=== PATIENT | female | born 1950 | race Caucasian/White ===

== ENCOUNTER → 2018-07-18 | Outpatient (CLI) | payer MEDICARE, OTHER ==
[2018-07-18 12:20] LABS: ABSOLUTE BASOPHILS # (AUTO) 0.1 10^3/uL (0.0-0.2); ABSOLUTE EOSINOPHILS # (AUTO) 0.2 10^3/uL (0.0-0.6); ABSOLUTE LYMPHOCYTES (AUTO) 2.6 10^3/uL (0.5-4.7); ABSOLUTE MONOCYTES (AUTO) 0.5 10^3/uL (0.1-1.4); BASOPHILS % (AUTO) 0.8 % (0-2); EOSINOPHILS % (AUTO) 2.4 % (0-6); HEMATOCRIT 38.3 % (36.0-47.0); HEMOGLOBIN 12.8 g/dL (12.0-15.5); LYMPHOCYTES % (AUTO) 35.2 % (13-45); MEAN CORPUSCULAR HEMOGLOBIN 28.9 pg (27.0-33.4); MEAN CORPUSCULAR HGB CONC 33.4 g/dL (32.0-36.0); MEAN CORPUSCULAR VOLUME 87 fl (80-97); MONOCYTES % (AUTO) 6.5 % (3-13); PLATELET COUNT 272 10^3/uL (150-450); RED BLOOD COUNT 4.42 10^6/uL (3.72-5.28); RED CELL DISTRIBUTION WIDTH 13.5 % (11.5-14.0); SEGMENTED NEUTROPHILS % (AUTO) 55.1 % (42-78); TOTAL CELLS COUNTED % (AUTO) 100 %; WHITE BLOOD COUNT 7.3 10^3/uL (4.0-10.5)
[2018-07-18 12:25] LABS: APPEARANCE,URINE CLEAR; BILIRUBIN,URINE NEGATIVE (NEGATIVE); COLOR,URINE COLORLESS; GLUCOSE, URINE NEGATIVE (NEGATIVE); KETONES,URINE NEGATIVE (NEGATIVE); LEUKOCYTE ESTERASE,URINE NEGATIVE (NEGATIVE); NITRITE,URINE NEGATIVE (NEGATIVE); PROTEIN,URINE NEGATIVE (NEGATIVE); URINE SPECIFIC GRAVITY 1.001; UROBILINOGEN,URINE NEGATIVE mg/dL (<2.0)
[2018-07-18 12:27] LABS: INTERNATIONAL RATION (INR) 0.87; PROTHROMBIN TIME 12.3 SEC (11.4-15.4)
[2018-07-18 12:28] LABS: PARTIAL THROMBOPLASTIN TIME 28.5 SEC (23.5-35.8)
== END ==
LOC: OD 07-15 12:26
PROVIDERS: ATTEND Pain Medicine Interventional Pain Medicine
DX: G89.4 Chronic pain syndrome (principal); Z79.01 Long term (current) use of anticoagulants
CPT/HCPCS: 36415; 81001; 85025; 85610; 85730

== ENCOUNTER 2018-07-19 09:59 | Day surgery (SDC) | payer MEDICARE, OTHER ==
[~2018-07-19 09:59] MED LIST: CEFAZOLIN 1 GM/D5W RTU 1 GM/50 ML RTUPB IV PRN; FENTANYL CITRATE INJ/PF 100 MCG/2 ML AMPUL ONE; MIDAZOLAM 2 MG/2 ML INJ ONE; PROPOFOL INJ 200 MG/20 ML VIAL IV ONE; RINGERS SOLUTION,LACTATED 1,000 ML IV PRN
[2018-07-19] MEDS ORDERED: CEFAZOLIN 1 GM/D5W RTU 1 GM/50 ML RTUPB IV ONE (10:10)
[2018-07-19] MEDS ORDERED: BUPIVACAINE HCL 0.25% /EPINEPHRINE INJ/PF 30 ML SDV ONE ×2 (10:58→11:23)
[2018-07-19] MEDS ORDERED: SODIUM BICARBONATE 8.4% INJ 50 MEQ/50 ML DISP.SYRIN ONE ×2 (10:58→11:23)
[2018-07-19] MEDS ORDERED: LIDOCAINE 1% INJ-PF (10 MG/ML) 30 ML SDV ONE ×2 (10:58→11:23)
--- NOTE | 2018-07-19 11:16 | RADIOLOGY REPORT (SQ) ---
EXAM DESCRIPTION: CHEST SINGLE VIEW COMPLETED DATE/TIME: 07/19/2018 10:57 am REASON FOR STUDY: preop COMPARISON: 07/20/2016 EXAM PARAMETERS: NUMBER OF VIEWS: One view. TECHNIQUE: Single frontal radiographic view of the chest acquired. RADIATION DOSE: NA LIMITATIONS: None. FINDINGS: LUNGS AND PLEURA: A well-defined stable sclerotic density overlies the medial aspect of t he right apex of the lung. No acute pulmonary consolidation. No pneumothorax or pleural effusion. MEDIASTINUM AND HILAR STRUCTURES: No masses. Contour normal. HEART AND VASCULAR STRUCTURES: Heart normal in size. Normal vasculature. BONES: No acute findings. HARDWARE: None in the chest. OTHER: No other significant finding. IMPRESSION: 1. No significant interval changes since the prior examination dated 07/20/2016. No ac standing rock findings. TECHNICAL DOCUMENTATION: JOB ID: [id number] [employer]- All Rights Reserved Reading location - IP/workstation name: [email or web address]
[2018-07-19] MEDS ORDERED: BUPIVACAINE HCL 0.5 % INJ/PF 30 ML SDV ONE (11:23)
[2018-07-19] MEDS ORDERED: FENTANYL CITRATE INJ/PF 100 MCG/2 ML AMPUL IV PRN ×3 (13:00)
[2018-07-19] MEDS ORDERED: PROMETHAZINE HCL INJ 25 MG/1 ML VIAL IV PRN (13:00)
[2018-07-19] MEDS ORDERED: MEPERIDINE HCL/PF INJ 25 MG/1 ML DISP.SYRIN IV PRN (13:00)
--- NOTE | 2018-07-19 13:00 | EKG REPORT ---
SEVERITY:- ABNORMAL ECG - SINUS RHYTHM PROBABLE INFERIOR INFARCT, AGE INDETERMINATE : Confirmed by: Edu Louis MD 19-Jul-2018 12:59:55
[2018-07-19] MEDS ORDERED: CEFAZOLIN INJ 1 GM VIAL ONE (13:28)
[2018-07-19] MEDS ORDERED: ONDANSETRON HCL INJ/PF 4 MG/2 ML SDV ONE (14:02)
--- NOTE | 2018-07-19 14:29 | RADIOLOGY REPORT (SQ) ---
EXAM DESCRIPTION: NO CHG FLUORO; THORACOLUMBAR SPINE AP/LAT COMPLETED DATE/TIME: 07/19/2018 1:31 pm REASON FOR STUDY: SPINAL STIMULATOR ASST WITH FLUORO IN OR G89.4 CHRONIC PAIN SYNDROME COMPARISON: None. FLUOROSCOPY TIME: 1.5 minutes 6 images saved to PACS. TECHNIQUE: Intra-operative images acquired during surgical procedure to evaluate progress. NUMBER OF IMAGES: 6 LIMITATIONS: None. FINDINGS: Placement of neurostimulator. IMPRESSION: IMAGE(S) OBTAINED DURING PROCEDURE. COMMENT: Quality ID 145: Final reports for procedures using fluoroscopy that document radiation exp osure indices, or exposure time and number of fluorographic images (if radiation exposure indices are not available) Please consult full operative report of the attending physician for description of the procedure. TECHNICAL DOCUMENTATION: JOB ID: [id number] [employer]- All Rights Reserved Reading location - IP/workstation name: [email or web address]
--- NOTE | 2018-07-19 14:29 | RADIOLOGY REPORT (SQ) ---
EXAM DESCRIPTION: NO CHG FLUORO; THORACOLUMBAR SPINE AP/LAT COMPLETED DATE/TIME: 07/19/2018 1:31 pm REASON FOR STUDY: SPINAL STIMULATOR ASST WITH FLUORO IN OR G89.4 CHRONIC PAIN SYNDROME COMPARISON: None. FLUOROSCOPY TIME: 1.5 minutes 6 images saved to PACS. TECHNIQUE: Intra-operative images acquired during surgical procedure to evaluate progress. NUMBER OF IMAGES: 6 LIMITATIONS: None. FINDINGS: Placement of neurostimulator. IMPRESSION: IMAGE(S) OBTAINED DURING PROCEDURE. COMMENT: Quality ID [id number]: Final reports for procedures using fluoroscopy that document radiation exp osure indices, or exposure time and number of fluorographic images (if radiation exposure indices are not available) Please consult full operative report of the attending physician for description of the procedure. TECHNICAL DOCUMENTATION: JOB ID: [id number] [employer]- All Rights Reserved Reading location - IP/workstation name: [email or web address]
[2018-07-19 16:12] VITALS: BP 134/80
--- NOTE | 2018-07-19 17:07 | OPERATIVE REPORT E ---
Operative Report NAME: MERNA GARZA : 1950 AGE: 68Y DATE OF SURGERY: 07/19/2018 ROOM: PREOPERATIVE DIAGNOSIS: Post-laminectomy syndrome with chronic back and lower extremity pain. POSTOPERATIVE DIAGNOSIS: Post-laminectomy syndrome with chronic back and lower extremity pain. OPERATIVE PROCEDURE: Implantation of spinal cord stimulation system to include right and left spinal cord stimulator electrodes in the thoracic spine followed by pulse generator complex programming and fluoroscopy for needle and lead placement. SURGEON: ADTIYA REGALADO M.D. ANESTHESIA: MAC. FIBERGLASS FINISHER: Kanwal Chandra M.D. BLOOD LOSS: 5 mL. COMPLICATIONS: None. INDICATIONS: Successful pain relief with outpatient spinal cord stimulation trial. PROCEDURE NOTE: After obtaining informed consent and advising the patient of the risks and benefits, including serious neurological injury, bleeding and infection, failure to obtain pain relief, aggravation of pain, paralysis, and nerve injury, allergic reaction and , she was taken to the operating room and placed comfortably in the prone position. Monitors were applied. MAC anesthesia was administered. She was then prepped with chlorhexidine with appropriate drying time, then draped. Fluoroscopy was used to evaluate the lumbar spine through selected entrance site using a midline incision. The pulse generator site had already been selected over the right gluteal flank region and had been marked. Both regions were anesthetized with 1% lidocaine with bicarb followed by deeper installation of the same followed by 0.25% bupivacaine with epinephrine. Sharp and blunt dissection were performed in both locations to create a suitable working space. In the lumbar region, the lumbar fascia was identified readily. At this point, decision was made to proceed with the implant. The spinal needles were utilized to anesthetize the paraspinal musculature down to the inner space at L1-2. The 14-gauge Tuohy needles were then advanced under fluoroscopic guidance entering into the epidural space right and left using [id number] to saline technique. No *------* or paresthesias were noted. The leads were placed through each of the needles and advanced up to the mid region of T8 to the mid region of T10. On the inferior region, they were pretty much parallel in location, so at least staggered. The 0 Mersilene pursestrings were placed on each needle followed by distal stay sutures. The right needle was removed first with care being attended to keep the electrode in correct place. The anchor was placed over this. The pursestring was secured followed by the distal stay suture. Lead position was continued with *------* monitor to assure no significant change in location. The second lead was secured with an anchor after removing the Touhy needle. The leads were then tunneled to the pulse generator site after anesthetizing that region as well. The left lead was marked and connected to the pulse generator in its upper location followed by the right lead in the lower location. Impedance was checked and found to be satisfactory. All hex nuts were secured. Each wound was then copiously irrigated with Betadine-containing irrigation solution. The pulse generator was placed in with the wires placed behind it and the label and plate facing the skin. After irrigation and inspection for hemostasis, the wounds were closed with 2-0 Vicryl interrupted inverted vertical mattress sutures. The skin edges of both wounds came together very nicely and the decision was made to use Dermabond tape and cement. When this was dry, Telfa and Tegaderm were placed over this. The patient was then taken to the PACU for further postoperative care and monitoring. DICTATING PHYSICIAN: ADITYA REGALADO M.D. [id number] PHY#: [id number] ID: [id number] JOB#: [id number] ACCT: [id number] cc:ADITYA REGALADO M.D. >
== END 2018-07-19 16:05 | disposition home or self-care (01) ==
LOC: OROUT 09:59
PROVIDERS: ATTEND Pain Medicine Interventional Pain Medicine
DX: G89.4 Chronic pain syndrome (principal); M96.1 Postlaminectomy syndrome, not elsewhere classified; E78.00 Pure hypercholesterolemia, unspecified; I10 Essential (primary) hypertension; M54.16 Radiculopathy, lumbar region; Z88.2 Allergy status to sulfonamides; Z88.1 Allergy status to other antibiotic agents; Z79.899 Other long term (current) drug therapy
CPT/HCPCS: 63685; 63650; 71045; 72080; 93005; 93010; C1778; J2250; J3490 ×3; J0690 ×2; J3010; J2405; J2704; 1936

== ENCOUNTER 2020-05-26 13:50 | Emergency (ER) | payer MEDICARE, OTHER ==
[2020-05-26] MEDS ORDERED: KETOROLAC TROMETHAMINE INJ/PF 30 MG/1 ML SDV IM ONE (14:02)
--- NOTE | 2020-05-26 14:06 | ER Document Report ---
ED Extremity Problem, Lower - General Chief Complaint: Ankle Pain Stated Complaint: RIGHT ANKLE PAIN Time Seen by Provider: 05/26/20 13:55 Primary Care Provider: [facility] [Provider Group] - Follow up in 3-5 days FRANNIE WINTERS DPM [ACTIVE STAFF] - Follow up in 3-5 days KEMAL HERNANDEZ NP [Primary Care Provider] - Follow up in 3-5 days Mode of Arrival: Ambulatory Information source: Patient Notes: 70-year-old female presented ED for pain to the right ankle. She states it started yesterday. She states she woke up started on her foot and almost made her fall. She states she has not had any injuries. She is on chronic pain management. She does have osteoporosis. She states she is on hydrocodone one half of a 5/325 pill as needed. She states most days she takes 1 a day but sometimes she has to take 2 doses. She is alert oriented respirations regular nonlabored speaking in full sentences. Constitutional: Negative for fever. HENT: Negative for sore throat. Eyes: Negative for visual changes. Cardiovascular: Negative for chest pain. Respiratory: Negative for shortness of breath. Gastrointestinal: Negative for abdominal pain, vomiting or diarrhea. Genitourinary: Negative for dysuria. Musculoskeletal: Negative for back pain. Pain to right foot and ankle but is able to ambulate with pain no swelling noted. No signs of bruising or any injury Skin: Negative for rash. Neurological: Negative for headaches, weakness or numbness. 10 point ROS negative except as marked above and in HPI. PHYSICAL EXAMINATION: GENERAL: Well-appearing, well-nourished and in no acute distress. HEAD: Atraumatic, normocephalic. EYES: Pupils equal round extraocular movements intact, conjunctiva are normal. ENT: Nares patent NECK: Normal range of motion LUNGS: No respiratory distress Musculoskeletal: Normal range of motion pain with ambulation to the right foot and ankle NEUROLOGICAL: Normal speech, mild limp due to pain to right foot and ankle PSYCH: Normal mood, normal affect. SKIN: Warm, Dry, normal turgor, no rashes or lesions noted. TRAVEL OUTSIDE OF THE [place] IN LAST 30 DAYS: No - HPI Patient complains to provider of: Pain Location: Ankle, Foot Occurred: Yesterday Where: Home, Indoors Onset/Duration: Intermittent Quality of pain: Achy Severity: Moderate Pain Level: 2 Context: Other - No injury Recent injury: No Associated symptoms: Painful ambulation Exacerbated by: Movement, Walking Relieved by: Nothing - Related Data Allergies/Adverse Reactions: levofloxacin [From Levaquin] Allergy (Verified 07/20/16 15:27) Sulfa (Sulfonamide Antibiotics) Allergy (Verified 07/20/16 15:27) Past Medical History - General Information source: Patient - Social History Smoking Status: Never Smoker Frequency of alcohol use: None Drug Abuse: None Family History: Reviewed & Not Pertinent - Past Medical History Cardiac Medical History: Reports: Hx Hypertension - ON MEDS Pulmonary Medical History: Reports: None EENT Medical History: Reports: None Neurological Medical History: Reports: None Endocrine Medical History: Reports: None Renal/ Medical History: Reports: None Malignancy Medical History: Reports: None GI Medical History: Reports: Hx Gastritis, Hx Gastroesophageal Reflux Disease Musculoskeletal Medical History: Reports Hx Arthritis - BACK, Reports Hx Musculoskeletal Deformity - Heel spurs and bone spurs, Reports Hx Musculoskeletal Trauma Skin Medical History: Reports None Psychiatric Medical History: Reports: None Traumatic Medical History: Reports: None Infectious Medical History: Reports: None Past Surgical History: Reports: Hx Orthopedic Surgery - back x2 pain stimulator inserted - Immunizations Hx Diphtheria, Pertussis, Tetanus Vaccination: Yes Hx Pneumococcal Vaccination: 06/16/16 Physical Exam - Vital signs Vitals: Temp Pulse Resp BP Pulse Ox 98.1 F 57 L 16 149/69 H 98 05/26/20 13:56 05/26/20 13:56 05/26/20 13:56 05/26/20 13:56 05/26/20 13:56 Course - Re-evaluation Re-evalutation: 05/26/20 15:33 X-ray was negative for any acute processes. She did have bone spurs and arthritis to the ankle. She states she knew she had these in the past. She did note that the pain was worse this time. She states she will take her chronic pain management and she will follow up with her primary care doctor and either a internet programmer or commodity management specialist. I did give her name and number for internet programmer and orthopedics. I told her she can make up her mind and see which ever she could get into. I also gave her exercises to do for the arthritis and the bone spurs. She was treated with a Toradol injection in the emergency room and she stated it did help a lot but that she could not take anti-inflammatories by mouth as they upset her stomach too much. She was instructed please to follow-up with someone tomorrow. Patient verbalized understanding and agreement. Patient was discharged home. - Vital Signs Vital signs: Temp Pulse Resp BP Pulse Ox 98.1 F 68 18 125/67 98 05/26/20 13:56 05/26/20 15:31 05/26/20 15:31 05/26/20 15:31 05/26/20 15:31 - Diagnostic Test Radiology reviewed: Image reviewed, Reports reviewed Discharge - Discharge Clinical Impression: Large plantar and Achilles spurs, Arthritis of right ankle, Pain, foot, right, chronic Condition: Stable Disposition: HOME, SELF-CARE Additional Instructions: Arthritis Your symptoms are due to arthritis. Arthritis is an inflammation of the joints. There are many types -- osteoarthritis (due to "wear and tear"), auto- immmune arthritis (such as rheumatoid, lupus, Sonya's, and others), and crystal-induced arthritis (such as gout and pseudogout). The physician's examination, combined with laboratory tests, will determine the cause of your arthritis. All types of arthritis are treated with antiinflammatory medications. Other medication may be required for special types of arthritis, or if your problem does not respond to the antiinflammatory medicine. Local warmth may be helpful. Move the involved joints through the full range of motion daily. Mild exercise is usually still possible for most persons with arthritis (ask your physician). Swimming provides good exercise without damaging the joints. Contact the physician if you are worsening in any way. Plantar Fasciitis or Heel Spur Plantar fasciitis is an inflammation of a ligament on the underside of the foot. It can be caused by injury, overuse such as running, or poorly fitting shoes. There may be a bone spur on the heel if inflammation has persisted a long time. Plantar fasciitis is treated with stretching exercises and antiinflammatory medicine. More severe cases may require injection of cortisone. It may take several weeks to get better. If nothing gives relief, an operation to remove the heel spur may help. Call or return if there is redness, increasing pain, swelling, fever, or any other new symptoms. Exercises for the Foot Muscles Stretching and strengthening of the foot muscles is an important part of recovery from injury, as well as in treatment and prevention of overuse syndromes like plantar fasciitis. TOWEL CURLS: Put your foot on a dry towel. Curl your toes to pick it up, then drop it. As it becomes easier, use a heavier towel. Repeat 20 times, twice daily. GLEZ CURLS: Lift and turn your knee, so your foot is against the opposite leg about mid-glez. Try to "grab" the entire glez bone with your toes, while moving your foot up and down the leg for one minute. Repeat twice daily. TOE LIFTS: Put your opposite foot over your 2nd to 5th toes. Now lift the toes up, pushing the other foot upward. Repeat 10 times, twice daily. Repeat using the large toe. EVERSIONS: Cross the opposite foot over, placing the heel just behind the 4th and 5th toes. Try to lift up the outside of the bottom foot. Hold 10 seconds. Repeat twice daily. Toradol Injection You have been given an injection of ketorolac tromethamine (Toradol). This is an excellent, safe drug for pain control. It also has potent antiinflammatory action. You should have significant pain relief within about one hour. Toradol is not addicting and is non-sedating. It does not interfere with driving or work. Call or return if you develop itching, hives, shortness of breath, or rash. Continue taking your chronic pain management medications as prescribed. FOLLOW-UP CARE: If you have been referred to a physician for follow-up care, call the physicians office for an appointment as you were instructed or within the next two days. If you experience worsening or a significant change in your symptoms, notify the physician immediately or return to the Emergency Department at any time for re-evaluation. Forms: Elevated Blood Pressure Referrals: FRANNIE WINTERS DPM [ACTIVE STAFF] - Follow up in 3-5 days [facility] [Provider Group] - Follow up in 3-5 days KEMAL HERNANDEZ NP [Primary Care Provider] - Follow up in 3-5 days
--- NOTE | 2020-05-26 14:38 | RADIOLOGY REPORT (SQ) ---
EXAM DESCRIPTION: ANKLE RIGHT COMPLETE IMAGES COMPLETED DATE/TIME: 05/26/2020 2:09 pm REASON FOR STUDY: pain since Wednesday no injury COMPARISON: None. NUMBER OF VIEWS: Three views. TECHNIQUE: AP, lateral, and oblique without weight bearing radiographic images acquired of the right ankle. LIMITATIONS: None. FINDINGS: MINERALIZATION: Normal. BONES: No acute fracture or dislocation. No worrisome bone lesions. No significant osteophytes. Larg e plantar and Achilles calcaneal enthesophytes are present. JOINTS: No effusions. SOFT TISSUES: No soft tissue swelling. No foreign body. OTHER: No other significant finding. IMPRESSION: No acute osseous abnormality. TECHNICAL DOCUMENTATION: JOB ID: [id number] [employer]- All Rights Reserved Reading location - IP/workstation name: [email or web address]
[2020-05-26 15:32] VITALS: BP 125/67
== END 2020-05-26 15:35 | disposition home or self-care (01) ==
LOC: ER 13:50
DX: M19.071 Primary osteoarthritis, right ankle and foot (principal); M77.30 Calcaneal spur, unspecified foot; M81.0 Age-related osteoporosis without current pathological fracture; M79.671 Pain in right foot; G89.29 Other chronic pain; I10 Essential (primary) hypertension; Z79.891 Long term (current) use of opiate analgesic; Z88.1 Allergy status to other antibiotic agents; Z88.2 Allergy status to sulfonamides
CPT/HCPCS: 99284; 96372; 73610; J1885